=== PATIENT | female | born 1990 | race Caucasian/White ===

== ENCOUNTER 2021-02-19 06:41 | Emergency (ER) | payer MEDICAID ==
[~2021-02-19] VITALS: Ht 157.5 cm; Wt 58.2 kg
[2021-02-19] MEDS ORDERED: KETOROLAC 30 MG/1 ML ONE (07:48)
[2021-02-19] MEDS ORDERED: MORPHINE SULFATE 4 MG/ML, 1ML ONE (07:48)
[2021-02-19] MEDS ORDERED: KETOROLAC 30 MG/1 ML IVPush ONE (08:00)
[2021-02-19] MEDS ORDERED: SODIUM CHLORIDE 0.9% 1,000ML IV ONE (08:00)
[2021-02-19] MEDS ORDERED: SODIUM CHLORIDE FLUSH 10ML SYR IVF ONE (08:00)
[2021-02-19] MEDS ORDERED: MORPHINE SULFATE 4 MG/ML, 1ML IVPush PRN (08:00)
--- NOTE | 2021-02-19 08:03 | NUR ---
PT UP TO BR WITH STEADY GAIT, BACK TO RM, DISCUSSED NEED FOR URINE SAMPLE, PT WILL ATTMEPT AT LATER TIME. PIV INITIATED PT MEDICATED PER MAR, VSS. TO BP, CONT PULSE OX. VISTIOR WITH PT AGGRESSIVE WITH VICTORIA RN, ASKED TO LEAVE. "FUCK THAT CHECK WITH SECURITY" REFUSING TO WEAR FACE MASK. VISITOR LEFT FREELY.
[2021-02-19 08:18] LABS: MEAN CORPUSCULAR HEMOGLOBIN 29.5 pg (27.0-34.8); MEAN CORPUSCULAR HGB CONC 33.5 g/dL (32.4-35.8); MEAN PLATELET VOLUME 7.2 fL (7.4-10.4); PLATELET COUNT 256 x10^3/uL (130-400); RED BLOOD COUNT 4.68 x10^6/uL (3.82-5.3); RED CELL DISTRIBUTION WIDTH 13.4 % (9.6-15.2)
[2021-02-19 08:29] LABS: ALANINE AMINOTRANSFERASE 18 U/L (12-78); ALBUMIN 3.9 g/dL (3.4-5.0); ANION GAP 4 mmol/L (5-15); CALCIUM 8.4 mg/dL (8.5-10.1); CHLORIDE 110 mmol/L (98-107); CREATININE 0.76 mg/dL (0.55-1.02)
[2021-02-19 08:33] LABS: ALKALINE PHOSPHATASE 87 U/L (45-117); BILIRUBIN,TOTAL 0.4 mg/dL (0.2-1.0); TOTAL PROTEIN 7.3 g/dL (6.4-8.2)
[2021-02-19 08:52] LABS: <PLATELET ESTIMATE> ADEQUATE; <PLT MORPHOLOGY> NORMAL PLT MORPH; <RBC MORPHOLOGY> NORMAL; BAND#(MANUAL) 0.15 x10^3/uL; BANDS%(MANUAL) 2 % (0-7); EOS#(MANUAL) 0.22 x10^3/uL (0.0-0.4); EOS% (MANUAL) 3 % (1-7); LYMPH#(MANUAL) 1.78 x10^3/uL (1-3.4); LYMPHS% (MANUAL) 24 % (22-44); MONOS#(MANUAL) 0.37 x10^3/uL (0.3-2.7); MONOS% (MANUAL) 5 % (2-9); SEG#(MANUAL) 4.88 x10^3/uL (1.8-6.8); SEGS% (MANUAL) 66 % (42-75)
--- NOTE | 2021-02-19 08:56 | NUR ---
REPORT TO ALFIE RN, PT TO CT AT THIS TIME
--- NOTE | 2021-02-19 09:02 | NUR ---
REPORT FROM SHANNEN GROSS.
--- NOTE | 2021-02-19 09:09 | NUR ---
PT OOB TO GIVE UA, GAIT STEADY, REPORTS PAIN DECR AFTER MEDS TO 5/10. VSS. AWAITING CT.
--- NOTE | 2021-02-19 09:51 | NUR ---
BENJAMÍN WLAKED TO LAB.
[2021-02-19 10:04] LABS: MICROSCOPIC INDICATED
[2021-02-19 11:20] VITALS: BP 124/74
== END 2021-02-19 11:22 | disposition home or self-care (01) ==
LOC: ED 08:33
DX: R31.29 Other microscopic hematuria (principal); R10.9 Unspecified abdominal pain
CPT/HCPCS: 36415; 74176; 80053; 81001; 83690; 84703; 85025; 87086; 96361; 96374; 96375; 99284; J1885; J2270; J7030